=== PATIENT | female | born 1975 | race Caucasian/White ===

== ENCOUNTER 2020-07-27 02:39 | Inpatient (IN) | payer MEDICAID, SELFPAY ==
[2020-07-27 03:18] VITALS: BP 136/78; PULSE 22; RESP 83; TEMP 36.7; O2SAT 94
[2020-07-27 03:22] VITALS: BMI 58.2
[2020-07-27 06:00] VITALS: RESP 18; TEMP 36.9
[2020-07-27 07:00] LABS: Glucose Point of Care 159 mg/dL (70-110)
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
--- NOTE | 2020-07-27 07:30 | PC.NURSE ---
REFUSED SCHEDULED NOVOLOG, AND REFUSED BREAKFAST
[2020-07-27 11:39] LABS: Glucose Point of Care 168 mg/dL (70-110)
[2020-07-27] MEDS: ARIPiprazole 30 mg Tablet PO (11:41)
[2020-07-27] MEDS: famotidine 20 mg Tablet PO (11:41)
--- NOTE | 2020-07-27 11:42 | PC.NURSE ---
refused scheduled Novolog, pt also stated she didn't feel like eating lunch
[2020-07-27 14:00] VITALS: BP 131/87; PULSE 74; RESP 18; TEMP 36.7; O2SAT 92
[2020-07-27] MEDS: venlafaxine 75 mg Tablet PO (14:09)
[2020-07-27] MEDS: PHENobarbital 32.4 mg Tablet 64.8 MG PO ×2 (15:51→20:50)
[2020-07-27 16:29] LABS: Glucose Point of Care 143 mg/dL (70-110)
[2020-07-27] MEDS: glimepiride 2 mg Tablet PO (16:38)
[2020-07-27 19:49] LABS: Glucose Point of Care 113 mg/dL (70-110)
[2020-07-27] MEDS: topiramate 25 mg Tablet 50 MG PO (20:40)
[2020-07-27] MEDS: gabapentin 300 mg Capsule PO (20:40)
[2020-07-27] MEDS: valACYclovir 1,000 mg Tablet 1000 MG PO (20:40)
[2020-07-27] MEDS: gabapentin 300 mg Capsule 600 MG PO (20:41)
[2020-07-27] MEDS: trazodone 100 mg Tablet PO (20:41)
[2020-07-27] MEDS: montelukast sodium 10 mg Tablet PO (20:41)
[2020-07-27 21:50] VITALS: PULSE 61; RESP 18; O2SAT 94
[2020-07-27 22:00] VITALS: BP 122/83; PULSE 67; RESP 18; TEMP 36.4; O2SAT 95
[2020-07-28] MEDS: silvasorb gel 44.4 mL 1 APPLIC TOPICAL ×3 (03:20→23:35)
--- NOTE | 2020-07-28 04:09 | PC.NURSE ---
Wound Dressing Pt has 5 open skin abscesses from her melanoma. Dressing changed at appx 0320 this morning and needs to be changed daily. Applied Silvasorb, nonstick pad, and tegaderm to each. Pt tolerated dressing change well. Stated that she is allergic to the adhesive tape, pt showered to remove glue, no new areas of redness noted at this time. Wounds have moderate amount of purulent, odorous drainage. Each are in various stages of healing.
[2020-07-28 04:28] VITALS: BP 131/90; PULSE 65; RESP 15; TEMP 36.8; O2SAT 97
[2020-07-28 06:30] LABS: Glucose Point of Care 126 mg/dL (70-110)
--- NOTE | 2020-07-28 06:35 | PC.NURSE ---
Pt behavior Pt came into hallway, leaning up against the wall, began to shake, pt was able to talk to staff, stated, I am dizzy and have a headache. Tylenol offered. Pt blood glucose is 129 at present. Patient assisted back to bed, placed on fall precautions, ephraim placed, back rails up in the bed, pt did not want the 3rd rail up. One nurse said to pt, if your having a seizure, why did you come out into the hallway? pt immediately responded clearly, IM DIZZY. Pt walked to bed, stated she was cold additional blankets provided. Pt is resting in her bed at this time. No postictal state following, speech clear, thought process clear, pt responds to verbal questions appropriately.
[2020-07-28] MEDS: gabapentin 300 mg Capsule 600 MG PO (08:22)
[2020-07-28] MEDS: PHENobarbital 32.4 mg Tablet 64.8 MG PO ×3 (08:22→20:24)
[2020-07-28] MEDS: atorvastatin 40 mg Tablet 80 MG PO (08:22)
[2020-07-28] MEDS: topiramate 25 mg Tablet 50 MG PO ×2 (08:23→20:26)
[2020-07-28] MEDS: montelukast sodium 10 mg Tablet PO ×2 (08:23→20:26)
[2020-07-28] MEDS: ARIPiprazole 30 mg Tablet PO (08:23)
[2020-07-28] MEDS: venlafaxine 75 mg Tablet PO (08:23)
[2020-07-28] MEDS: glimepiride 2 mg Tablet PO ×2 (08:23→17:33)
[2020-07-28] MEDS: famotidine 20 mg Tablet PO (08:23)
[2020-07-28] MEDS: valACYclovir 1,000 mg Tablet 1000 MG PO ×2 (08:23→20:25)
[2020-07-28] MEDS: HYDROcodone-acetaminophen 7.5-325 mg Tablet 1 TAB PO ×2 (10:58→23:26)
[2020-07-28 12:02] LABS: Glucose Point of Care 137 mg/dL (70-110)
[2020-07-28 14:00] VITALS: BP 129/87; PULSE 79; RESP 17; TEMP 36.6; O2SAT 93
--- NOTE | 2020-07-28 15:18 | P.PN_ITS ---
Subjective NPU Subjective: Interval history: Patient reports significant improvement after restarting her medication Continues to have some irritability and anger but states that she is not suicidal and specifies that she never would have harmed herself despite having a remote history of suicide attempts citing her family and adoptive daughter as reasons why she would not hurt herself Reports tolerating her medication well with no reports of any medication side effects Mental Status Exam MSE Comments: Appears older than stated age, obese, short cut hair, sitting in the day room, initially irritable but cooperative, good eye contact Psychomotor activity is neither increased nor decreased, no agitation Speech is normal rate and volume, spontaneous, clear reticulation, not pressured I am upset but doing better, full range of affect, not labile Alert and oriented to person, place, time, situation Memory and concentration appear to be intact per interview Thought process, linear, no flight of ideas, no looseness of associations Thought content, no delusions, no hallucinations, no suicidal or homicidal ideation Insight and judgment appear to be intact Vitals/I&O/Wt Last Vital Signs Temp 97.8 F 07/28/20 14:00 Pulse 79 07/28/20 14:00 Resp 17 07/28/20 14:00 BP 129/87 07/28/20 14:00 Pulse Ox 93 07/28/20 14:00 Weight last 48 hrs Weight 158.757 kg A&P Assessment and plan (1) Suicidal behavior: Status: Acute (2) Depressive disorder: Status: Acute (3) Borderline personality disorder: Status: Acute (4) PTSD (post-traumatic stress disorder): Status: Acute Additional A&P Information Patient denies any suicidal ideation and clarifies that she never had any intent or plan of ending her life despite past, remote history of suicide attempt citing protective factors. Patient reports intermittent mood symptoms but denies any depressive symptoms after restarting her home medication with no reported side effects. Patient continues to cite multiple exacerbating factors to include chronic medical issues and life stressors. CONTINUE current medication, continue to monitor Anticipate discharge tomorrow patient continues to tolerate medication well with sustained improvement in mood Involuntary Hold Information 96 Hour Hold: 96 Hour Involuntary Admission: Yes 96 Hour Hold Ending Date: 08/02/20 96 Hour Hold Ending Time: 02:45 Attestations NPU Medical Necessity Statement*: Continues to require psychiatric hospitalization for medication stabilization, coordination for safe discharge Coding Level of Care Code Acute Postal Service Window Clerk for g Fwd Diagnoses Suicidal behavior R45.89 Depressive disorder F32.9 Borderline personality disorder F60.3 PTSD (post-traumatic stress disorder) F43.10
--- NOTE | 2020-07-28 15:21 | P.HP_ITS ---
Providers/Chief Complaint Admitting Physician: Freddy Eaton MD Primary Care Provider: Cole Lopez DO Chief Complaint: SI History of Present Illness Bettye Pham is a 45 year old female with a past medical history of chronic kidney disease under investigation for dialysis, history of left nephrectomy, right partial nephrectomy, history of chronic urinary retention, dependent on straight catheterization, all her specialists are at [facility], history of CHF, insulin-dependent type 2 diabetes mellitus, history of skin cancer who presents to [facility] due to depressed mood, hospitalist team was called due to concerns for urinary retention. Patient tells me that she has a chronic history of urinary retention, she has a history of right partial nephrectomy, left nephrectomy, for reasons she does not know, she sees a urologist at [facility], she what it sounds like is she has a neurogenic bladder so she straight caths herself every 4 hours. She also gets frequent urinary tract infections. Review of Systems Const: Denies: fever(s) Card: Denies: chest pain Resp: Denies: dyspnea GI: Denies: abdominal pain Medications/Allergies Home Medications Medication Instructions Recorded Confirmed Last Taken Type Multi Vitamin 1 tab PO DAILY 07/27/20 07/27/20 Unknown History aripiprazole 30 mg PO DAILY 07/27/20 07/27/20 Unknown History exenatide microspheres [Bydureon] 2 mg SUBCUT Q7D 07/27/20 07/27/20 Unknown History famotidine [Pepcid] 20 mg PO DAILY 07/27/20 07/27/20 Unknown History ferrous sulfate 325 mg PO DAILY 07/27/20 07/27/20 Unknown History gabapentin 300 mg PO BEDTIME 07/27/20 07/27/20 Unknown History gabapentin 600 mg PO BID 07/27/20 07/27/20 Unknown History galcanezumab-gnlm [Emgality See Rx Instructions .ROUTE .COMPLEX 07/27/20 07/27/20 Unknown History Syringe] glimepiride 2 mg PO BID 07/27/20 07/27/20 Unknown History hydrocodone-acetaminophen 1 tab PO Q6H PRN 07/27/20 07/27/20 Unknown History hydrocodone-acetaminophen 1 tab PO TID PRN 07/27/20 07/27/20 07/26/20 History insulin aspart U-100 [Novolog See Rx Instructions .ROUTE .COMPLEX 07/27/20 07/27/20 Unknown History U-100 Insulin aspart] insulin glargine [Lantus U-100 100 unit SUBCUT QPM 07/27/20 07/27/20 Unknown History Insulin] magnesium 400 mg PO DAILY 07/27/20 07/27/20 Unknown History methocarbamol 750 mg PO Q8H PRN 07/27/20 07/27/20 Unknown History montelukast 10 mg PO BID 07/27/20 07/27/20 Unknown History ondansetron 8 mg PO BEDTIME PRN 07/27/20 07/27/20 Unknown History ondansetron HCl 4 mg PO Q6H PRN 07/27/20 07/27/20 Unknown History phenobarbital 64.8 mg PO TID 07/27/20 07/27/20 Unknown History phenobarbital 64.8 mg PO TID 07/27/20 07/27/20 07/24/20 History rosuvastatin 40 mg PO DAILY 07/27/20 07/27/20 Unknown History sennosides-docusate sodium 2 tab-cap PO DAILY 07/27/20 07/27/20 Unknown History solifenacin 10 mg PO DAILY 07/27/20 07/27/20 Unknown History topiramate 50 mg PO BID 07/27/20 07/27/20 Unknown History trazodone 100 mg PO BEDTIME 07/27/20 07/27/20 Unknown History valerian 1,500 mg PO BEDTIME 07/27/20 07/27/20 Unknown History venlafaxine 75 mg PO DAILY 07/27/20 07/27/20 Unknown History Allergies Allergy/AdvReac Type Severity Reaction Status Date / Time eszopiclone [From [facility]] Allergy Severe ADR-Seizure Verified 07/27/20 03:46 pioglitazone Allergy Intermediate ALGY-Swell Verified 07/27/20 03:46 Lip/Tongue/Throat adhesive tape Allergy Mild ALGY-Rash Verified 07/27/20 03:46 carbamazepine Allergy Mild ADR-Agitate Verified 07/27/20 03:46 d cephalexin Allergy Mild ALGY-Rash Verified 07/27/20 03:46 ketorolac Allergy Mild ALGY-Rash Verified 07/27/20 03:46 levofloxacin Allergy Mild ALGY-Rash Verified 07/27/20 03:46 nitrofurantoin Allergy Mild ALGY-Rash Verified 07/27/20 03:46 ondansetron Allergy Mild ADR-Gastrointestinal Verified 07/27/20 03:46 Upset Penicillins Allergy Mild ALGY-Rash Verified 07/27/20 03:46 promethazine Allergy Mild ADR-Gastrointestinal Verified 07/27/20 03:46 Upset Sulfa (Sulfonamide Allergy Mild ALGY-Rash Verified 07/27/20 03:46 Antibiotics) bee venom protein (honey bee) Allergy Unknown Verified 07/27/20 03:46 PFSH Acute PFSH: Medical History (Updated 07/28/20 @ 15:25 by Dino Hayward MD) CHF (congestive heart failure) Insulin dependent type 2 diabetes mellitus Skin cancer Surgical History (Updated 07/28/20 @ 15:25 by Dino Hayward MD) History of left nephrectomy Family History (Updated 07/28/20 @ 15:25 by Dino Hayward MD) Other Adopted Social History (Updated 07/28/20 @ 15:25 by Dino Hayward MD) Smoking and tobacco status: current every day smoker Alcohol intake: never Substance/Drug Use: current Substance/Drug use type: Marijuana Vitals/I&O/Wt Last Vital Signs Temp 97.8 F 07/28/20 14:00 Pulse 79 07/28/20 14:00 Resp 17 07/28/20 14:00 BP 129/87 07/28/20 14:00 Pulse Ox 93 07/28/20 14:00 Weight last 48 hrs Weight 158.757 kg Physical Exam Const: COMMON NORMALS: no acute distress Resp: COMMON NORMALS: normal respiratory effort, No retractions and No use of accessory muscles AUSCULTATION: clear to auscultation bilaterally Cardio: COMMON NORMALS: regular rate, regular rhythm, S1 normal heart sound present and S2 normal heart sound present GI: COMMON NORMALS: Normal to inspection, nondistended, normoactive bowel sounds present, Soft to palpation and non-tender Extremity: COMMON NORMALS: no pedal edema Skin: NARRATIVE SKIN EXAM: multiple skin lesions , covered A&P Assessment and plan (1) Neurogenic bladder: -Continue straight cath every 4 hours -UA for UTI -Monitor for urinary retention, monitor for UTI symptoms Status: Acute Attestations Medical Necessity Statement*: Hospitalist team was called for urinary for urinary retention Coding Level of Care Code Acute Oracle Manager for Chg Fwd Diagnoses Neurogenic bladder N31.9
[2020-07-28 17:42] LABS: Glucose Point of Care 165 mg/dL (70-110)
[2020-07-28 18:04] LABS: Blood Urine Neg (Negative); Glucose Urine UA Norm (Normal); Ketones Urine 1+ (Negative); Nitrate Urine Positive (Negative); Protein Urine Neg (Negative); Specific Gravity, Urine 1.005 (1.005-1.030); Urine Appearance Cloudy (CLEAR); Urine Color Yellow (Yellow); pH Urine 7 (5-7)
[2020-07-28 18:05] LABS: Add Urine Microscopic? YES; Bilirubin Urine Neg (Negative); Leukocyte Esterase Urine 1+ (Negative); Urobilinogen Urine Norm (Negative)
[2020-07-28 18:06] LABS: Add Urine Culture? No; Bacteria Urine TRACE /hpf; RBC Urine 0-4 /hpf (0-2); Squamous Epithelial Cell Urine 0-4 /hpf (0-5)
[2020-07-28 19:37] VITALS: BP 138/80; PULSE 79; RESP 18; TEMP 36.6; O2SAT 95
[2020-07-28 19:53] LABS: Glucose Point of Care 96 mg/dL (70-110)
[2020-07-28] MEDS: trazodone 100 mg Tablet PO (20:25)
[2020-07-28] MEDS: gabapentin 300 mg Capsule 900 MG PO (20:25)
--- NOTE | 2020-07-28 23:14 | PC.NURSE ---
Addendum entered by Mily Ferro RN 07/29/20 02:21: SITTER OBTAINED AT 0145 FROM OB Original Note: Cpap/No PSA for 1:1 Called warehouse insulation worker, called respiratory, pt resting in her room, requires Cpap, door open, pt in nurses sight, placed on CPAP. Will continue to observe with door open until Sitter is located for this pt.
[2020-07-29 00:16] VITALS: PULSE 67; RESP 17; O2SAT 95
--- NOTE | 2020-07-29 01:05 | PC.NURSE ---
PM Assessment Glucose is 96, V/S are wnl, calm and cooperative with staff, dressings changed, reddened areas noted from the tegaderm, applied a curlex dressing in its place this afternoon to allow the skin to become less irritated. Will readdress any dressings prior to shift change to ensure further intervention isn't warranted. Each of the abscesses that are dressed are improved, no new areas noted.
[2020-07-29] MEDS: acetaminophen 325 mg Tablet 650 MG PO (03:56)
[2020-07-29] MEDS: hyDROXYzine 25 mg Capsule 50 MG PO (03:58)
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
--- NOTE | 2020-07-29 05:00 | PC.NURSE ---
Visteril Follow up Pt responded well to Visteril 50mg PO given about an hour ago, she returned to bed, and slept.
[2020-07-29] MEDS: HYDROcodone-acetaminophen 7.5-325 mg Tablet 1 TAB PO (05:32)
[2020-07-29 05:59] VITALS: BP 112/81; PULSE 88; RESP 18; TEMP 36.2; O2SAT 95
--- NOTE | 2020-07-29 06:02 | PC.NURSE ---
Pt behavior Pt is calm and cooperative this morning. She was able to void twice last night on her own without needing straight cath. Pt does report some burning sensation while urinating and fullness. Historically, pt only has one kidney functioning this morning. pt reports pain just under naval, she also has a umbilical hernia. Pt states, she wants to go home, she misses her family, misses her dog. Pt is up and around. She has consumed 2 small cups of coffee this morning. Pt reports mild burning of her right leg abscess, dressings were changed at 2100 and reinforced this morning about 3 am. Pt is in her room at this time.
[2020-07-29 07:48] LABS: Glucose Point of Care 159 mg/dL (70-110)
[2020-07-29] MEDS: topiramate 25 mg Tablet 50 MG PO (08:15)
[2020-07-29] MEDS: venlafaxine 75 mg Tablet PO (08:15)
[2020-07-29] MEDS: atorvastatin 40 mg Tablet 80 MG PO (08:15)
[2020-07-29] MEDS: gabapentin 300 mg Capsule 600 MG PO (08:15)
[2020-07-29] MEDS: ARIPiprazole 30 mg Tablet PO (08:15)
[2020-07-29] MEDS: famotidine 20 mg Tablet PO (08:15)
[2020-07-29] MEDS: montelukast sodium 10 mg Tablet PO (08:15)
[2020-07-29] MEDS: PHENobarbital 32.4 mg Tablet 64.8 MG PO (08:15)
[2020-07-29] MEDS: valACYclovir 1,000 mg Tablet 1000 MG PO (08:16)
[2020-07-29] MEDS: glimepiride 2 mg Tablet PO (08:16)
[2020-07-29] MEDS: ciprofloxacin 500 mg Tablet 250 MG PO (09:57)
[2020-07-29 10:24] LABS: Glucose Point of Care 145 mg/dL (70-110)
--- NOTE | 2020-07-29 11:00 | P.DS_ITS ---
Diagnoses at Discharge Discharge Diagnosis (1) Neurogenic bladder: Status: Acute Reason for Visit Reason for Visit: SI Hospital Course Hospital Course 45-year-old female with multiple ongoing medical issues and history of left nephrectomy and partial right nephrectomy, diabetes mellitus, history of congestive heart failure as well as longstanding psychiatric issues to include borderline personality disorder presented to outlying emergency department after she reports being placed on hold several times by a crisis phone line. Patient states that she had a shotgun in front of her with her and adoptive daughter next to her throughout this episode. When asked why her did not take the shotgun from her, she reported that he knew that she would never shoot herself and patient also confirms that although she has a remote history of past suicide attempts by overdose that she would never end her life when in distress because of her adoptive daughter and has been. Patient quickly reconstituted on the unit after starting her home medications which she states had not kept down last week secondary to nausea with no reports of any medication side effects. She continues to report ongoing life and medical stressors as exacerbating her symptoms which she reports are transient. She also reports having a therapist which she typically sees on a weekly basis but was unable to see over the past couple of weeks because of other medical appointments. Patient participate in unit activities to include group sessions and unit milieu with no reports of any behavioral disturbances. During her hospital stay, the hospitalist was consulted secondary to concerns about urinary output with patient having history of neurogenic bladder, bladder scan was completed and patient resumed straight cathing as she typically does at home with no problems reported. Patient was not suicidal and was not endorsing any psychiatric symptoms at the time of discharge and did not appear to pose an imminent threat of harm to self or others. Low to moderate risk of harm to self given no current suicidal ideation and patient reporting that her protective factors to include living for her family will keep her from harming herself as well as no active psychiatric symptoms although her risk may be elevated if she continues to have difficulty utilizing adaptive coping strategies in the context of her ongoing life and medical stressors. Risk mitigation included psychiatric hospitalization for observation for any persisting suicidal ideation or behaviors, medication stabilization, recommendation to continue compliance with her medication, medication management and therapy follow-up. Patient was able to communicate her understanding of the need to remain compliant with her medication, medication management and therapy follow-up in order to target development of more adaptive coping strategies to mitigate her risk of harm to self and others. Involuntary Hold Information 96 Hour Hold: 96 Hour Involuntary Admission: Yes 96 Hour Hold Ending Date: 08/02/20 96 Hour Hold Ending Time: 02:45 Mental Status Exam MSE Comments: Sitting in the day room, calm, cooperative, interactive, good eye contact, appropriately groomed and dressed Psychomotor activity is neither increased nor decreased, no agitation Speech is normal rate and volume, spontaneous, clear articulation, not pressured I feel much better, full range of affect, smiles appropriately during interview, not labile Alert and oriented to person, place, time, situation Memory and concentration appear to be intact per interview Thought process, linear, no flight of ideas, no looseness of associations Thought content, no delusions, no hallucinations, no suicidal or homicidal ideation Insight and judgment appear to be intact Discharge Data Data Completed and Pending: Labs from last 24 hours 07/29/20 07/29/20 07/28/20 10:21 07:45 19:49 POC Glucose 145 H 159 H 96 Urine Color Urine Appearance Urine pH Ur Specific Gravit y Urine Protein Urine Glucose (UA) Urine Ketones Urine Blood Urine Nitrate Urine Bilirubin Urine Urobilinogen Ur Leukocyte Marybeth ase Urine RBC Urine WBC Ur Squamous Epith Cells Amorphous Sediment Urine Bacteria 07/28/20 07/28/20 07/28/20 17:38 17:00 11:59 POC Glucose 165 H 137 H Urine Color Yellow Urine Appearance Cloudy Urine pH 7 Ur Specific Gravit y 1.005 Urine Protein Neg Urine Glucose (UA) Norm Urine Ketones 1+ H Urine Blood Neg Urine Nitrate Positive H Urine Bilirubin Neg Urine Urobilinogen Norm Ur Leukocyte Marybeth ase 1+ H Urine RBC 0-4 H Urine WBC None Ur Squamous Epith Cells 0-4 H Amorphous Sediment Not Reportable Urine Bacteria Trace Vitals: Last Vital Signs Temp 97.2 F L 07/29/20 05:59 Pulse 88 07/29/20 05:59 Resp 18 07/29/20 05:59 BP 112/81 07/29/20 05:59 Pulse Ox 95 07/29/20 05:59 Discharge Plan Discharge Patient Disposition: Home Condition: Stable Prescriptions: Continued sennosides-docusate sodium 8.6-50 mg Tablet 2 tab-cap PO DAILY RF: 0 hydrocodone-acetaminophen 7.5-325 mg Tablet 1 tab PO Q6H PRN (Reason: PAIN) RF: 0 phenobarbital 64.8 mg Tablet 64.8 mg PO TID RF: 0 gabapentin 300 mg Capsule 300 mg PO BEDTIME RF: 0 venlafaxine 75 mg Tablet Extended Release 24hr 75 mg PO DAILY RF: 0 Bydureon 2 mg/0.65 mL Pen Injector 2 mg SUBCUT Q7D RF: 0 Multi Vitamin 1 tab PO DAILY RF: 0 magnesium 400 mg PO DAILY RF: 0 rosuvastatin 40 mg PO DAILY RF: 0 gabapentin 600 mg Tablet 600 mg PO BID RF: 0 Lantus U-100 Insulin 100 unit/mL Solution 100 unit SUBCUT QPM RF: 0 ondansetron HCl 4 mg Tablet 4 mg PO Q6H PRN (Reason: Nausea) RF: 0 glimepiride 2 mg Tablet 2 mg PO BID RF: 0 ondansetron 8 mg Tablet,Disintegrating 8 mg PO BEDTIME PRN (Reason: Nausea And Vomiting) RF: 0 Pepcid 20 mg Tablet 20 mg PO DAILY RF: 0 methocarbamol 750 mg Tablet 750 mg PO Q8H PRN (Reason: Muscle Spasm) RF: 0 trazodone 100 mg Tablet 100 mg PO BEDTIME RF: 0 Novolog U-100 Insulin aspart 100 unit/mL Solution See Rx Instructions .ROUTE .COMPLEX RF: 0 ferrous sulfate 325 mg (65 mg iron) Tablet 325 mg PO DAILY RF: 0 montelukast 10 mg Tablet 10 mg PO BID RF: 0 topiramate 50 mg Tablet 50 mg PO BID RF: 0 solifenacin 10 mg Tablet 10 mg PO DAILY RF: 0 Emgality Syringe 120 mg/mL Syringe See Rx Instructions .ROUTE .COMPLEX RF: 0 aripiprazole 30 mg Tablet 30 mg PO DAILY RF: 0 phenobarbital 64.8 mg Tablet 64.8 mg PO TID RF: 0 hydrocodone-acetaminophen 7.5-325 mg Tablet 1 tab PO TID PRN (Reason: Severe Pain (Scale Score 7-10)) RF: 0 Discontinued valerian 400 mg Capsule 1,500 mg PO BEDTIME RF: 0 Discharge Orders: Discharge Order (Routine); Ordered 07/29/20 Ordered By: Yomi Paz Referrals: [facility] [Other] (Sarika Us NP-Medication Provider: 08/02/20 @ 10:15am Raheem Therapist: 08/15/20 @ 3pm) Discharge Diet: Usual diet Discharge Activity: Resume usual activity Patient Instructions: Opioid Safety Discharge Attestations NPU Time Spent in Discharge Care*: greater than 30 min Status at Discharge: Cognitive status at discharge: cognitively intact , Behavioral status at discharge: cooperative , Functional status at discharge: independent ambulation Overall status at discharge: patient is back to baseline Coding Level of Care Code Acute Chg FW DC note Diagnoses Neurogenic bladder N31.9
[2020-07-29 11:12] VITALS: BP 112/81; PULSE 88; RESP 18; TEMP 36.2; O2SAT 95
[2020-07-29 11:34] LABS: Glucose Point of Care 125 mg/dL (70-110)
== END 2020-07-29 14:33 | disposition home or self-care (01) | DRG 881 ==
PROVIDERS: Family Medicine; Admitting Provider Psychiatry & Neurology Psychiatry; Visit Provider Psychiatry & Neurology Psychiatry
DX: F32.9 Major depressive disorder, single episode, unspecified (principal); R45.851 Suicidal ideations; Z68.43 Body mass index [BMI] 50.0-59.9, adult; F17.210 Nicotine dependence, cigarettes, uncomplicated; F12.90 Cannabis use, unspecified, uncomplicated; Z91.19 Patient's noncompliance with other medical treatment and regimen; Z81.8 Family history of other mental and behavioral disorders; E66.01 Morbid (severe) obesity due to excess calories; G89.29 Other chronic pain; F43.10 Post-traumatic stress disorder, unspecified; F60.3 Borderline personality disorder; F60.89 Other specific personality disorders; E11.22 Type 2 diabetes mellitus with diabetic chronic kidney disease; N18.9 Chronic kidney disease, unspecified; I50.9 Heart failure, unspecified; Z90.5 Acquired absence of kidney; Z85.828 Personal history of other malignant neoplasm of skin; Z87.440 Personal history of urinary (tract) infections; N31.9 Neuromuscular dysfunction of bladder, unspecified; Z79.4 Long term (current) use of insulin; Z79.891 Long term (current) use of opiate analgesic
CPT/HCPCS: 36416; 51702; 81001; 82962; 94660; 96372; J1815